=== PATIENT | female | born 1985 | race African-American/Black ===

== ENCOUNTER 2024-02-05 11:51 | Emergency (ER) | payer OTHER ==
[~2024-02-05] VITALS: Ht 172.7 cm; Wt 66.0 kg
[2024-02-05 11:52] VITALS: O2SAT 99
[2024-02-05 12:17] VITALS: BP 94/66; PULSE 94; RESP 18; TEMP 98.5; O2SAT 100
[2024-02-05] MEDS ORDERED: TOPUD MT (13:40)
[2024-02-05] MEDS ORDERED: LIDO700A15 TP (13:40)
== END 2024-02-05 13:56 | disposition home or self-care (01) ==
LOC: ER 11:51
DX: M54.9 Dorsalgia, unspecified (principal); D64.9 Anemia, unspecified
CPT/HCPCS: 99282